=== PATIENT | male | born 1990 ===

== ENCOUNTER 2018-02-19 09:17 | Outpatient (CLI) | payer BC ==
--- NOTE | 2018-02-19 12:28 | Diagnostic Imaging Report ---
Indication: Abdominal pain Technique: Campbell-scale and duplex images of the upper abdomen were obtained Comparison: none Findings: Gallbladder is unremarkable, without stones, wall thickening, nor pericholecystic fluid. Sonographic Brady's sign is negative. Common bile duct measures mm in diameter. No intrahepatic biliary ductal dilatation. Liver demonstrates normal echogenicity, no focal abnormality. Portal vein and hepatic veins are patent. Pancreas is unremarkable. Spleen is unremarkable. Left kidney measures 11.5 cm in length. Right kidney measures 11.4 cm length. Both kidneys demonstrate normal echogenicity. There is no hydronephrosis. No focal abnormality . Non-aneurysmal abdominal aorta . Impression: Negative
== END 2018-02-19 11:17 | disposition home or self-care (01) ==
LOC: ULS 09:17
DX: B20 Human immunodeficiency virus [HIV] disease (principal); R10.9 Unspecified abdominal pain
CPT/HCPCS: 76700